=== PATIENT | female | born 1995 | race Two or more races ===

== ENCOUNTER → 2020-09-09 | Outpatient (CLI) | payer SELFPAY | LOC: M LABSMTC 11:15 | PROVIDERS: ATTEND Pediatrics | DX: Z20.822 Contact with and (suspected) exposure to COVID-19 (principal) ==

== ENCOUNTER → 2020-09-16 | Outpatient (CLI) | payer SELFPAY | LOC: M LABSMTC 12:47 | PROVIDERS: ATTEND Pediatrics | DX: Z20.822 Contact with and (suspected) exposure to COVID-19 (principal) ==

== ENCOUNTER → 2021-01-05 | Outpatient (CLI) | payer SELFPAY | LOC: M LABSMTC 13:10 | PROVIDERS: ATTEND Pediatrics | DX: Z11.52 Encounter for screening for COVID-19 (principal) ==

== ENCOUNTER → 2021-02-22 | Outpatient (CLI) | payer SELFPAY | LOC: M LABSMTC 12:40 | PROVIDERS: ATTEND Pediatrics | DX: Z20.828 Contact with and (suspected) exposure to other viral communicable diseases (principal); Z11.59 Encounter for screening for other viral diseases ==

== ENCOUNTER → 2021-07-24 | Outpatient (CLI) | payer OTHER ==
[~2021-07-24] MED LIST: CEPH500T; DOXY-443 PO; IBUP80TA; MICR1TAB16
--- NOTE | 2021-07-24 14:21 | REP ---
INDICATION: RT BREAST LYMPHADENITIS COMPARISON: None TECHNIQUE: Realtime grayscale and color B-mode ultrasound examination using linear high-frequency transducer. FINDINGS: Ultrasound examination of the right axilla at the site of maximal pain demonstrates a heterogeneous hypoechoic vascular nodule measuring 19 x 15 x 19 mm which may represent pathologic lymph node. An adjacent normal lymph node is are also identified measuring 13 x 7 x 9 mm. IMPRESSION: Complex nodule most suggestive of pathologic lymph node. Follow-up may be warranted. <Electronically signed by Tho Horton > 07/24/21 [id number]
== END ==
LOC: M WHC 13:25
PROVIDERS: ATTEND Physician Assistant
DX: L04.2 Acute lymphadenitis of upper limb (principal)

== ENCOUNTER 2021-07-25 17:48 | Emergency (ER) | payer OTHER ==
[~2021-07-25] VITALS: Ht 170.2 cm; Wt 79.3 kg
[2021-07-25] MEDS ORDERED: CEPH500T (18:09)
[2021-07-25] MEDS ORDERED: IBUP80TA (18:09)
[2021-07-25] MEDS ORDERED: MICR1TAB16 (18:09)
--- OUTSIDE RECORDS SUMMARY | 2021-07-25 23:51 | CCD ---
Author Author [facility] Organization [facility] Address Unknown Phone Unavailable Care Team Providers Care Body Stylist Name Role Phone MING, Rafaela ARMANDO PA Unavailable Unavailable LETTIERE, A PRABHA PA Unavailable Unavailable LETTIERE, A PRABHA PA Unavailable Unavailable LETTIERE, A PRABHA PA Unavailable Unavailable LETTIERE, A PRABHA PA Unavailable Unavailable LETTIERE, A PRABHA PA Unavailable Unavailable LETTIERE, A PRABHA PA Unavailable Unavailable LETTIERE, A PRABHA PA Unavailable Unavailable LETTIERE, A PRABHA PA Unavailable Unavailable LETTIERE, A PRABHA PA Unavailable Unavailable LETTIERE, A PRABHA PA Unavailable Unavailable LETTIERE, A PRABHA PA Unavailable Unavailable LETTIERE, A PRABHA PA Unavailable Unavailable LETTIERE, A PRABHA PA Unavailable Unavailable LETTIERE, A PRABHA PA Unavailable Unavailable LETTIERE, A PRABHA PA Unavailable Unavailable LETTIERE, A PRABHA PA Unavailable Unavailable LETTIERE, A PRABHA PA Unavailable Unavailable LETTIERE, A PRABHA PA Unavailable Unavailable LETTIERE, A PRABHA PA Unavailable Unavailable LETTIERE, A PRABHA PA Unavailable Unavailable LETTIERE, A PRABHA PA Unavailable Unavailable LETTIERE, A PRABHA PA Unavailable Unavailable LETTIERE, A PRABHA PA Unavailable Unavailable LETTIERE, A PRABHA PA Unavailable Unavailable LETTIERE, A PRABHA PA Unavailable Unavailable LETTIERE, A PRABHA PA Unavailable Unavailable LETTIERE, A PRABHA PA Unavailable Unavailable LETTIERE, A PRABHA PA Unavailable Unavailable LETTIERE, A PRABHA PA Unavailable Unavailable LETTIERE, A PRABHA PA Unavailable Unavailable Edwin PORRAS MD Unavailable Unavailable Edwin PORRAS MD Unavailable Unavailable Edwin PORRAS MD Unavailable Unavailable Edwin PORRAS MD Unavailable Unavailable Edwin PORRAS MD Unavailable Unavailable Edwin PORRAS MD Unavailable Unavailable Edwin PORRAS MD Unavailable Unavailable Edwin PORRAS MD Unavailable Unavailable Edwin PORRAS MD Unavailable Unavailable Edwin PORRAS MD Unavailable Unavailable Edwin PORRAS MD Unavailable Unavailable Edwin PORRAS MD Unavailable Unavailable Edwin PORRAS MD Unavailable Unavailable Edwin PORRAS MD Unavailable Unavailable Edwin PORRAS MD Unavailable Unavailable Edwin PORRAS MD Unavailable Unavailable Edwin PORRAS MD Unavailable Unavailable Edwin PORRAS MD Unavailable Unavailable Edwin PORRAS MD Unavailable Unavailable Edwin PORRAS MD Unavailable Unavailable Edwin PORRAS MD Unavailable Unavailable Edwin PORRAS MD Unavailable Unavailable Edwin PORRAS MD Unavailable Unavailable Edwin PORRAS MD Unavailable Unavailable Edwin PORRAS MD Unavailable Unavailable Edwin PORRAS MD Unavailable Unavailable RING, K ROBINSON PA Unavailable Unavailable RING, K ROBINSON PA Unavailable Unavailable RING, K ROBINSON PA Unavailable Unavailable RING, K ROBINSON PA Unavailable Unavailable RING, K ROBINSON PA Unavailable Unavailable RING, K ROBINSON PA Unavailable Unavailable RING, K ROBINSON PA Unavailable Unavailable RING, K ROBINSON PA Unavailable Unavailable RING, K ROBINSON PA Unavailable Unavailable RING, K ROBINSON PA Unavailable Unavailable RING, K ROBINSON PA Unavailable Unavailable RING, K ROBINSON PA Unavailable Unavailable RING, K ROBINSON PA Unavailable Unavailable RING, K ROBINSON PA Unavailable Unavailable RING, K ROBINSON PA Unavailable Unavailable RING, K ROBINSON PA Unavailable Unavailable RING, K ROBINSON PA Unavailable Unavailable RING, K ROBINSON PA Unavailable Unavailable RING, K ROBINSON PA Unavailable Unavailable RING, K ROBINSON PA Unavailable Unavailable RING, K ROBINSON PA Unavailable Unavailable Edwin PORRAS MD Unavailable Unavailable Edwin PORRAS MD Unavailable Unavailable Edwin PORRAS MD Unavailable Unavailable Edwin PORRAS MD Unavailable Unavailable Edwin PORRAS MD Unavailable Unavailable Edwin PORRAS MD Unavailable Unavailable Edwin PORRAS MD Unavailable Unavailable GINYARD, Edwin BOONE MD Unavailable Unavailable GINYARD, Edwin BOONE MD Unavailable Unavailable GINYARD, Edwin BOONE MD Unavailable Unavailable GINYARD, Edwin BOONE MD Unavailable Unavailable GINYARD, Edwin BOONE MD Unavailable Unavailable GINYARD, Edwin BOONE MD Unavailable Unavailable GINYARD, Edwin BOONE MD Unavailable Unavailable GINYARD, Edwin BOONE MD Unavailable Unavailable GINYARD, Edwin BOONE MD Unavailable Unavailable GINYARD, Edwin BOONE MD Unavailable Unavailable GINYARD, Edwin BOONE MD Unavailable Unavailable GINYARD, Edwin BOONE MD Unavailable Unavailable GINYARD, Edwin BOONE MD Unavailable Unavailable GINYARD, Edwin BOONE MD Unavailable Unavailable GINYARD, Edwin BOONE MD Unavailable Unavailable GINYARD, Edwin BOONE MD Unavailable Unavailable GINYARD, Edwin BOONE MD Unavailable Unavailable GINYARD, Edwin BOONE MD Unavailable Unavailable GINYARD, Edwin BOONE MD Unavailable Unavailable Re-disclosure Warning The records that you are about to access may contain information from federally-assisted alcohol or drug abuse programs. If such information is present, then the following federally mandated warning applies: This information has been disclosed to you from records protected by federal confidentiality rules (42 CFR part 2). The federal rules prohibit you from making any further disclosure of this information unless further disclosure is expressly permitted by the written consent of the person to whom it pertains or as otherwise permitted by 42 CFR part 2. A general authorization for the release of medical or other information is NOT sufficient for this purpose. The Federal rules restrict any use of the information to criminally investigate or prosecute any alcohol or drug abuse patient.The records that you are about to access may contain highly sensitive health information, the redisclosure of which is protected by Article 27-F of the [facility] Public Health law. If you continue you may have access to information: Regarding HIV / AIDS; Provided by facilities licensed or operated by the [facility] Office of Mental Health; or Provided by the [facility] Office for People With Developmental Disabilities. If such information is present, then the following [facility] mandated warning applies: This information has been disclosed to you from confidential records which are protected by state law. State law prohibits you from making any further disclosure of this information without the specific written consent of the person to whom it pertains, or as otherwise permitted by law. Any unauthorized further disclosure in violation of state law may result in a fine or senior care sentence or both. A general authorization for the release of medical or other information is NOT sufficient authorization for further disc losure. Encounters Encounter Providers Location Date Indications Data Source(s ) Outpatient Attender: ROBINSON Echavarria Primary 07/22/2021 07:15:00 AM EST [facility] ([facility]) Outpatient Attender: PRABHA Echavarira Prim moshe 06/09/2021 12:20:00 PM EDT [facility] ([facility]) Outpatient Attender: MELY PORRAS MD 02:24:00 PM EST - 08/03/2020 02:24:00 PM EST [facility] Outpatient Attender: MELY PORRAS MD Family Practice 01:30:00 PM EST [facility] ([facility]) Outpatient [id number] [facility] [id number] 07/12/2020 12:00:00 AM EST eCW1 ([facility]) Immunizations Vaccine Date Status Description Data Source(s) COVID-19 VACCINE Pfizer 06/27/2021 12:00:00 AM EDT completed [facility] Vaccine Series Complete: YESThis Data wa s Submitted to [facility]. COVID-19 VACCINE Pfizer 06/06/2021 12:00:00 AM EDT completed [facility] Vaccine Series Complete: NOThis Data was Submitted to [facility]. Medications Medication Brand Name Start Date Product Form Dose Route Admi nistrative Instructions Pharmacy Instructions Status Indications Reaction Description Data Source(s) Ibuprofen 800 MG Oral Tablet Ibuprofen 07/22/2021 12:00:00 AM EST ORAL active [facility] ([facility]) Cephalexin 500 MG Oral Tablet Cephalexin 07/22/2021 12:00:00 AM EST ORAL active [facility] ([facility]) Insurance Providers Payer name Policy type / Coverage type Policy ID Covered republican ID Covered republican's relationship to blackman Policy Blackman Plan Information [facility] [id number] [facility] [id number] SELF PAY ONLY [id number] SP [id number] SELF PAY ONLY UNKNOWN SP UNKNOW N EXCELLUS BC-BS PPO [id number] MO2 [id number] [employer]UE [employer] BLUE SHIELD CL BS [id number] Problems, Conditions, and Diagnoses Code Display Name Description Problem Type Effective Dates Data Source(s) V13069 Encounter for gynecological examination (general) (routine) without abnormal findings Encounter for gynecological examination (general) (routine) without abnormal findings Diagnosis 08/03/2020 02:24:00 PM [facility] Surgeries/Procedures Procedure Description Date Indications Data Source(s) OFFICE OUTPATIENT VISIT 15 MINUTES 07/22/2021 12:00:00 AM EST [facility] ([facility]) OFFICE OUTPATIENT NEW 30 MINUTES 06/09/2021 12:00:00 A M EDT [facility] ([facility]) Results ID Date Data Source [id number] 02/23/2021 12:00:00 AM EDT [facility] Name Value Range Interpretation Code Description Data Delfina rce(s) Supporting Document(s) SARS-CoV-2 (COVID-19) RNA [Presence] in Respiratory specimen by RAYA with probe detection Not Detected [facility] This lab was ordered by [facility] and reported by [employer] ID Date Data Source [id number] 01/05/2021 12:00:00 AM EDT [facility] Name Value Range Interpretation Code Description Data Delfina rce(s) Supporting Document(s) SARS-CoV-2 (COVID-19) RNA [Presence] in Respiratory specimen by RAYA with probe detection Not Detected [facility] This lab was ordered by [facility] and reported by [employer] ID Date Data Source [id number] 09/16/2020 12:00:00 AM EST [facility] Name Value Range Interpretation Code Description Data Delfina rce(s) Supporting Document(s) SARS-CoV-2 (COVID-19) RNA [Presence] in Respiratory specimen by RAYA with probe detection Positive for 2019-nCoV [facility] This lab was ordered by [facility] and reported by [employer] ID Date Data Source [id number] 09/09/2020 12:00:00 AM EST [facility] Name Value Range Interpretation Code Description Data Delfina rce(s) Supporting Document(s) SARS-CoV-2 (COVID-19) RNA [Presence] in Respiratory specimen by RAYA with probe detection Positive for 2019-nCoV [facility] This lab was ordered by [facility] and reported by [employer] ID Date Data Source [id number] 08/03/2020 03:07:00 PM EST [facility] ([facility]) Name Value Range Interpretation Code Description Data Delfina rce(s) Supporting Document(s) Source: Laboratory test result [facility] ([facility]) {SOURCE: Genital~.~.~Z01.419 Chlamydia trachomatis,Raya Laboratory test result [facility] ([facility]) {SOURCE: Genital~.~.~Z01.419 Neisseria gonorrhoeae,Raya Laboratory test result [facility] ([facility]) {SOURCE: Genital~.~.~Z01.419 ID Date Data Source [id number] 08/09/2020 07:39:00 AM EST [facility] Name Value Range Interpretation Code Description Data Delfina rce(s) Supporting Document(s) SOURCE: Genital [facility] Chlamydia trachomatis rRNA [Presence] in Unspecified specimen by Probe and target amplification method Negative Negative [facility] Neisseria gonorrhoeae rRNA [Presence] in Unspecified specimen by Probe and target amplification method Negative Negative [facility] Procedure Social History Code Duration Value Status Description Data Source(s ) Smoking 07/22/2021 12:00:00 AM EST Patient has never smoked co mpleted Patient has never smoked [facility] ([facility]) Smoking 07/12/2020 12:00:00 AM EST Never Smoker completed Never S carmen eCW1 ([facility]) Vital Signs ID Date Data Source UNK Name Value Range Interpretation Code Description Data Source(s) Systolic blood pressure 114 mm[Hg] 114 mm[Hg] M EDENT ([facility]) Diastolic blood pressure 81 mm[Hg] 81 mm[Hg] [facility] ([facility]) Heart rate 77 /min 77 /min [facility] ([facility]) Respiratory rate 18 /min 18 /min [facility] ( [facility]) Oxygen saturation in Arterial blood by Pulse oximetry 97 % 97 % [facility] ([facility]) Body temperature 98.5 [degF] 98.5 [degF] [facility] ([facility]) Body weight 160.00 [lb_av] 160.00 [lb_av] MEDEN T ([facility], [facility]) Body height 67 [in_i] 67 [in_i] [facility]) 5'7" Body mass index (BMI) [Ratio] 25.1 kg/m2 25.1 k g/m2 [facility]) Systolic blood pressure 101 mm[Hg] 101 mm[Hg] M EDENT ([facility]) Diastolic blood pressure 69 mm[Hg] 69 mm[Hg] [facility]) Heart rate 81 /min 81 /min [facility] ([facility]) Respiratory rate 14 /min 14 /min [facility]) Oxygen saturation in Arterial blood by Pulse oximetry 98 % 98 % [facility]) Body temperature 96.8 [degF] 96.8 [degF] [facility] ([facility]) Body weight 168.00 [lb_av] 168.00 [lb_av] MEDEN T ([facility], [facility]) Body height 67 [in_i] 67 [in_i] [facility]) 5'7" Body mass index (BMI) [Ratio] 26.3 kg/m2 26.3 k g/m2 [facility]) Systolic blood pressure 130 mm[Hg] 130 mm[Hg] M EDENT ([facility]) Diastolic blood pressure 73 mm[Hg] 73 mm[Hg] [facility] ([facility]) Heart rate 87 /min 87 /min [facility] Body weight 165.00 [lb_av] 165.00 [lb_av] MEDEN T ([facility]) Body weight 74.844 kg 74.844 kg [facility] ([facility]) Body height 67 [in_i] 67 [in_i] [facility] ([facility]) 5'7" Body mass index (BMI) [Ratio] 25.8 kg/m2 25.8 k g/m2 [facility] ([facility]) Body surface area Derived from formula 1.86 m2 1.86 m2 [facility] ([facility]) Body weight 167.2 [lb_av] 167.2 [lb_av] eCW1 ([facility]) Body height 67 [in_i] 67 [in_i] eCW1 ([facility]) Body mass index (BMI) [Ratio] 26.18 kg/m2 26.18 kg/m2 eCW1 ([facility]) Heart rate 85 /min 85 /min eCW1 ([facility]) Respiratory rate 18 /min 18 /min eCW1 ([facility]) Body temperature 98.6 [degF] 98.6 [degF] eCW1 ( [facility]) Systolic blood pressure 109 mm[Hg] 109 mm[Hg] e CW1 ([facility]) Diastolic blood pressure 59 mm[Hg] 59 mm[Hg] eCW1 ([facility])
--- OUTSIDE RECORDS SUMMARY | 2021-07-25 23:51 | CCD | Continuity of Care Document ---
Author Author Judy LAI Organization Unknown Address [facility] [place] [address] Phone [phone] Problems Description No Information Available Social History Type Date Description Comments Sex Unknown ETOH Use Occasionally consumes alcohol Tobacco Use Start: Unknown Patient Currently Vapes 3% Tobacco Use Start: Unknown Patient has never smoked Allergies, Adverse Reactions, Alerts Description No Known Drug Allergies Medications Active Medications SIG Qnty Indications Ordering Provide r Date Control Pill Unknown / Immunizations Description No Information Available Vital Signs Date Vital Result Comment 06/09/2021 3:00pm BP Systolic 101 mmHg BP Diastolic 69 mmHg Heart Rate 81 /min Respiratory Rate 14 /min O2 % BldC Oximetry 98 % Body Temperature 96.8 F Weight 168.00 lb Height 67 inches 5'7" BMI (Body Mass Index) 26.3 kg/m2 Pain Level 6 Results Description No Information Available Procedures Date Code Description Status 06/09/2021 39807 Office/Outpatient New Low MDM 30 -44 Minutes Completed Medical Devices Description No Information Available Encounters Type Date Location Provider Dx Diagnosis Office Visit 06/09/2021 12:20p Main Office MARCIO Grover L04 .2 Acute lymphadenitis of upper limb Assessments Date Code Description Provider 06/09/2021 L04.2 Acute lymphadenitis of upper bhatti b MARCIO Grover Plan of Treatment No Information Available Functional Status Description No Information Available Mental Status Description No Information Available Referrals Description No Information Available
--- OUTSIDE RECORDS SUMMARY | 2021-07-25 23:51 | CCD | Continuity of Care Document ---
Author Author Judy LAI Organization Unknown Address [facility] [place] [address] Phone [phone] Problems Description No Information Available Social History [...] Available Procedures Date Code Description Status 06/09/2021 35207 Office/Outpatient New Low MDM 30 -44 Minutes [...]
--- OUTSIDE RECORDS SUMMARY | 2021-07-25 23:51 | CCD | Continuity of Care Document ---
Author Author Judy ROMERO [place] Organization Unknown Address [facility] [place] [address] Phone [phone] Care Team Providers Care Brim Setter Name Role Phone Franky Goodman MD AUTM Unavailable [facility] AUTM Problems Description No Information Available Social History Type Date Description Comments Sex Unknown ETOH Use Occasionally consumes alcohol Tobacco Use Start: Unknown Patient Currently Vapes 3% Tobacco Use Start: Unknown Patient has never smoked Smoking Status Reviewed: 07/22/21 Patient has never smoked Allergies and adverse reactions Description No Known Drug Allergies Medications Active Medications SIG Qnty Indications Ordering Provide r Date Cephalexin 500mg Tablets 1 tab by mouth q6 hours for 7 days 28tabs L04.2 Chauncey Darby JR., M.D. Ibuprofen 800mg Tablets 1 tab by mouth q8 hours as needed for pain; take with food 14tabs L04.2 Chauncey Darby JR., M.D. 07/22/2021 Control Pill Unknown Immunizations Description No Information Available Vital Signs Date Vital Result Comment 07/22/2021 9:23am BP Systolic 114 mmHg BP Diastolic 81 mmHg Heart Rate 77 /min Respiratory Rate 18 /min O2 % BldC Oximetry 97 % Body Temperature 98.5 F Weight 160.00 lb Height 67 inches 5'7" BMI (Body Mass Index) 25.1 kg/m2 Pain Level 9 06/09/2021 3:00pm BP Systolic 101 mmHg BP Diastolic 69 mmHg Heart Rate 81 /min Respiratory Rate 14 /min O2 % BldC Oximetry 98 % Body Temperature 96.8 F Weight 168.00 lb Height 67 inches 5'7" BMI (Body Mass Index) 26.3 kg/m2 Pain Level 6 Results Description No Information Available Procedures Date Code Description Status 07/22/2021 18803 Office/Outpatient Established Lo w MDM 20-29 Min Completed 06/09/2021 83560 Office/Outpatient New Low MDM 30 -44 Minutes Completed Medical Devices Description No Information Available Encounters Type Date Location Provider Dx Diagnosis Office Visit 07/22/2021 8:15a Main Office MARCIO Huerta L04.2 Acute lymphadenitis of upper limb Office Visit 06/09/2021 12:20p Main Office MARCIO Grover L04 .2 Acute lymphadenitis of upper limb Assessments Date Code Description Provider 07/22/2021 L04.2 Acute lymphadenitis of upper bhatti b MARCIO Huerta 06/09/2021 L04.2 Acute lymphadenitis of upper bhatti b MARCIO Grover Plan of Treatment 07/22/2021 - MARCIO Huerta* L04.2 Acute lymphadenitis of upper limb* New Medication:* Cephalexin 500 mg - 1 tab by mouth q6 hours for 7 days * Ibuprofen 800 mg - 1 tab by mouth q8 hours as needed for pain; take with food Functional Status Description No Information Available Mental Status Description No Information Available Referrals Refer to Reason for Referral Status Appt Date Matilde Romero PA Created [address] [place] [address] [place] [address] [phone] Osmel Willett PA Created [facility] [address] [place] [address] [phone]
--- OUTSIDE RECORDS SUMMARY | 2021-07-25 23:51 | CCD | Continuity of Care Document ---
Author Author Judy ROMERO Organization Unknown Address [facility] [place] [address] Phone [phone] Care Team Providers Care Manager Of It Name Role Phone Franky Goodman MD AUTM Unavailable [facility] AUTM [phone] Problems Description No Information Available Social History [...] Ordering Provide r Date Control Pill Unknown 00/ 0000 Immunizations Description No Information Available Vital Signs [...] Available Procedures Date Code Description Status 06/09/2021 64848 Office/Outpatient New Low [facility] 30 -44 Minutes Completed Medical Devices Description No Information Available Encounters Type Date Location Provider Dx Diagnosis Office Visit 06/09/2021 12:20p Main Office MARCIO Grover L04 .2 Acute lymphadenitis of upper limb Assessments Date Code Description Provider 06/09/2021 Deisy04.2 Acute lymphadenitis of upper bhatti b MARCIO Grover Plan of Treatment No Information Available Functional Status Description No Information Available Mental Status Description No Information Available Referrals Refer to Reason for Referral Status Appt Date Matilde Romero PA Created [address] [place] [phone] [phone] Osmel Willett PA Created [facility] [address] [place] [id number] [phone]
[2021-07-26 00:13] LABS: BASO % 0.3 % (0.0-1.0); EOS # 0.2 10^3/uL (0.0-0.5); EOS % 2.7 % (0.0-3.0); HEMATOCRIT 33.2 % (36.0-47.0); HEMOGLOBIN 10.7 g/dl (12.0-15.5); LYMPH # 2.8 10^3/uL (1.5-5.0); LYMPH % 30.6 % (24.0-44.0); MEAN CORPUSCULAR HEMOGLOBIN 28.9 pg (27.0-33.0); MEAN CORPUSCULAR HGB CONC 32.2 g/dl (32.0-36.5); MEAN CORPUSCULAR VOLUME 89.7 fl (80.0-96.0); MONO # 0.7 10^3/uL (0.0-0.8); MONO % 8.2 % (2.0-8.0); NEUTROPHILS # 5.2 10^3/uL (1.5-8.5); PLATELET COUNT, AUTOMATED 194 10^3/uL (150-450)
[2021-07-26] MEDS ORDERED: KETOROLAC 30 MG/ML 1ML VIAL IM ONE (00:25)
[2021-07-26 00:54] VITALS: BP 114/69
[2021-07-26] MEDS ORDERED: DOXY-443 PO (00:57)
[2021-07-26] MEDS ORDERED: DOXYCYCLINE HYCLATE 100MG TABLET PO ONE (01:05)
== END 2021-07-26 02:40 | disposition home or self-care (01) ==
LOC: M ED 17:48
DX: I88.9 Nonspecific lymphadenitis, unspecified (principal); Z77.098 Contact with and (suspected) exposure to other hazardous, chiefly nonmedicinal, chemicals
CPT/HCPCS: 36415; 80047; 85025; 96372; 99283; J1885